=== PATIENT | female | born 1955 | race Caucasian/White ===

== ENCOUNTER → 2016-11-01 | Day surgery (SDC) | payer OTHER ==
[2016-10-31 13:04] VITALS: Ht 170.2 cm; Wt 93.2 kg
[~2016-11-01] VITALS: Ht 170.2 cm; Wt 93.2 kg
[~2016-11-01] MED LIST: ATROPINE SULFATE 0.1 MG/ML 5ML SYR IV PRN; ATV/1 PO; BUPIVACAINE 0.5 % 5 MG/1 ML PF 10ML VIAL ONE; CARV25TA2 PO; CLINDAMYCIN PHOS 150 MG/ML 2 ML VIAL IV SCH; EpHEDrine SULFATE INJ 50 MG/ML AMP IV PRN; FENTANYL CITRATE INJ 50 MCG/1 ML 2 ML VIAL IV PRN; HYDR-5688 PO; LACTATED RINGER'S 1000ML 1,000 ML IV SCH; LIDOCAINE HCL 1% 20 ML VIAL ONE; LIDOCAINE HCL 2% 2 ML VIAL (20MG/ML) ONE; LOSA50TA6 PO; MIDAZOLAM HCL 1 MG/ML 2ML VIAL ONE; NASONEX NAE; ONDANSETRON INJ 2 MG/ML 2 ML VIAL IV PRN; ONDANSETRON INJ 2 MG/ML 2 ML VIAL ONE; OXYCODONE/ACETAMINOPHEN 5-325 TAB PO PRN; PATIENT'S ALLERGY INFO NEEDS ENTERED SCH; PROPOFOL IV EMULSION 10 MG/ML 20 ML VIAL IV ONE; SODIUM CHLORIDE 0.9% 1000ML 1,000 ML IV SCH
--- NOTE | 2016-11-01 07:15 | History & Physical Bridge - [place] ---
H&P Re-Evaluation Bridge Note: I have examined the patient, reviewed the History & Physical and in the interval since the performance of the History & Physical I have noted the following changes of clinical significance: No changes noted
--- NOTE | 2016-11-01 08:12 | [facility] Post Operative Brief Note ---
Immediate Operative Summary Operative Date Nov 01, 2016. Pre-Operative Diagnosis Right long finger trigger finger release Post-Operative Diagnosis same Procedure(s) Performed Right Long Finger Trigger Finger Release Surgeon Dr Ribeiro [employer] [facility] Hand Surgeon(s) Charles Bailey PA-C Estimated Blood Loss 0 Findings ABOVE Specimens 0 Anesthesia LOCAL IV SEDATION Complication(s) None Disposition
--- NOTE | 2016-11-01 08:17 | Discharge Instructions-SurgCtr ---
Discharge Instructions Date of Service Nov 01, 2016. Visit Reason for Visit: Right Long Finger Trigger Finger Discharge Discharge Diagnosis / Problem: SAME ABOVE Discharge Goals Goal(s): Decrease discomfort, Improve function Activity Recommendations Activity Limitations: as noted below Lifting Limitations: gradually increase as tolerated Exercise/Sports Limitations: until after follow-up appointment Shower/Bathe: may shower/bathe in 3 days Anesthesia . Post Anesthesia Instructions: If you have had General Anesthesia or IV Sedation: * Do not drive today. * Resume driving when surgeon permits. * Do not make important decisions or sign legal documents today. * Call surgeon for: 1. Temperature elevations greater than 101 degrees F. 2. Uncontrollable pain. 3. Excessive bleeding. 4. Persistent nausea and vomiting. 5. Medication intolerance (nausea, vomiting or rash). * For nausea and vomiting use only clear liquids such as: tea, soda, bouillon until nausea subsides, then gradually increase diet as tolerated. * If you have any concerns or questions, call your surgeon's office. If physician is unavailable and it is an emergency, call 911 or go to the nearest emergency room. . Instructions / Follow-Up Instructions / Follow-Up MEDICATIONS: * Resume previous medications unless instructed otherwise by your surgeon. * Always take pain medication on a full stomach or with food to avoid upset stomach. * Do not drink alcohol or drive while taking narcotics. * Ibuprofen or Tylenol may be taken if narcotic not needed. SPECIAL CARE INSTRUCTIONS: __ None _X_ Keep extremity elevated and iced x 48 hours; apply ice 20-30 minutes 8-10 times/day. May remove at night. __ Sling __24 hrs/day __ Remove at night __ Shoulder Immobilizer __ 24 hrs/day __ Remove at night _X_ Dressing __ Maintain until seen in office, may shower with plastic over site _X_ Remove dressings in 24-48 hours and then may shower _X_ Cover incisions with band-aids after showering __ Do not remove steri-strips Call physician if chills or temperature rises above 102 degrees or pain unrelieved by prescribed pain medications at . . Diet Recommendations Home Diet: resume previous diet Procedures Procedures Performed: Right Long Finger Trigger Finger Release Pending Studies Studies pending at discharge: no Medical Emergencies . Who to Call and When: Medical Emergencies: If at any time you feel your situation is an emergency, please call 911 immediately. . Non-Emergent Contact Non-Emergency issues call your: Primary Care Provider . . "Provider Documentation" section prepared by Thierno Bailey. .
[2016-11-01 08:20] VITALS: TEMP 36.3
[2016-11-01 08:41] VITALS: BP 117/80; PULSE 55; O2SAT 100
--- NOTE | 2016-11-01 08:49 | Anesthesia Progress Nt - [facility] ---
Anesthesia Post Op Note Date & Time Nov 01, 2016 at 08:49 Vital Signs Pain Intensity: 0 Vital Signs Past 12 Hours Date Time Temp Pulse Resp B/P Pulse Ox O2 Delivery O2 Flow Rate FiO2 11/01/16 08:41 55 18 117/80 100 Room Air 11/01/16 08:20 36.3 11/01/16 08:19 35.6 64 16 123/75 96 Room Air 11/01/16 07:15 36.5 57 16 122/85 98 Room Air Notes Mental Status: alert / awake / arousable, participated in evaluation Pt Amnestic to Procedure: Yes Nausea / Vomiting: adequately controlled Pain: adequately controlled Airway Patency, RR, SpO2: stable & adequate BP & HR: stable & adequate Hydration State: stable & adequate Anesthetic Complications: no major complications apparent
--- NOTE | 2016-11-01 09:32 | OPERATIVE REPORT ---
DATE OF OPERATION: 11/01/2016 PREOPERATIVE DIAGNOSIS: Right long trigger finger. POSTOPERATIVE DIAGNOSIS: Same. PROCEDURE: Release A1 shireen, right long finger. SURGEON: Theodore Ribeiro MD CANDY SUPERVISOR: Thierno Bailey PA-C. ANESTHESIOLOGIST: Dm Lanier DO ANESTHESIA: Local with IV sedation. DRAINS: None. COMPLICATIONS: None. CONDITION: The patient tolerated the procedure well and returned to the recovery room in apparent satisfactory condition. INDICATIONS FOR SURGERY: Brittany is a 61-year-old female who has had triggering discomfort around her right long finger. She has had conservative care. We elected to go ahead and proceed with surgery. Procedure, expected outcomes and side effects were all explained in detail. DESCRIPTION OF PROCEDURE: The patient was taken to the OR at which time she was placed supine on the operating table, given IV sedation. The right hand was prepped and draped in usual sterile fashion for surgery. We went ahead and infiltrated the anticipated incision site with 1% Xylocaine and put a forearm tourniquet up to 250 mmHg. We made a transverse incision over the A1 shireen, dissected down with loupe magnification. We identified the A1 shireen and it was divided with 11 blade and tenotomy scissors. There was a little small cyst associated with that and that was removed at the same time. The finger was taken through a range of motion and no longer triggering. The wound was irrigated, closed with interrupted 4-0 nylon sutures. Marcaine without epinephrine was placed in skin edges. Placed a sterile dressing of Xeroform, 4 x 4, soft roll and a Coban and returned to the recovery room in apparent satisfactory condition. I attest to the content of the Intraoperative Record and any orders documented therein. Any exceptio ns are noted below.
== END | disposition home or self-care (01) ==
LOC: X.SURG 06:51
PROVIDERS: ATTEND Orthopaedic Surgery
DX: M65.331 Trigger finger, right middle finger (principal); Z85.3 Personal history of malignant neoplasm of breast; I10 Essential (primary) hypertension; Z88.0 Allergy status to penicillin; Z90.10 Acquired absence of unspecified breast and nipple; Z96.659 Presence of unspecified artificial knee joint; Z90.710 Acquired absence of both cervix and uterus